=== PATIENT | female | born 1985 | race Caucasian/White ===

== ENCOUNTER → 2017-12-12 01:09 | Outpatient (CLI) | payer MEDICAID, SELFPAY ==
--- NOTE | 2017-12-12 09:34 | DI.REPORT_ITS ---
SYMPTOM/DIAGNOSIS: SURVEY Z34.82 OBSTETRICAL ULTRASOUND: Routine examination was performed. There is a single living intrauterine gestation. Estimated sonographic age is 18 weeks 4 days. No or placental abnormalities were identified. Please refer to the accompanying data sheet for complete details. IMPRESSION: Single living intrauterine gestation. Estimated sonographic age is 18 weeks 4 days. Many abnormalities cannot be diagnosed. A normal exam does not exclude a congenital anomaly. Radiology No. [id number] LMP: Exam Date: 12/12/17 [facility] wks days on EDC ([facility]) 05/15/18 Confirmed: HISTORY: SURVEY ---- PREDICTED GESTATIONAL AGE NUMBER 18 weeks with a range of 17 week to 19 weeks. 1 Determined by XX___1STUS___LMP___HISTORY Info. pertaining to fetus # PLACENTA PRESENTATION Grade 0-1 Cephalic___ Anterior___Posterior_X__ Breech__X__ Right Left Transverse(head right___ Fundal___Low-lying___Previa___ Transverse(head left___ Varying BIOMETRY AMNIOTIC FLUID BPD: 41 mm 18 +3 weeks Normal HC: 157 mm 18 +4 weeks AC: 132 mm 18 +5 weeks FL: 27 mm 18 +3 weeks AMNIOTIC FLUID INDEX >26 WK CRL: mm weeks Cisterna Magna: 2.6 mm CI: 82 RUQ: LUQ Cerebellum: 1.9 cm EFW: 246 grams 79% Percentile RLQ: LLQ Total: cms Composite AGE= 18 +4 wks EDC by US__05/11/2018 BIOPHYSICAL PROFILE ANATOMY IDENTIFIED SCORE 0/2 Heart: 4-Chamber_X__Rate:BPM___141 bpm__ LVOT:___X RVOT:_X Amniotic Fluid(>2cms)____ Stomach:___X____ Kidneys:_X Respirations (>30 secs) Bladder:____X____ Post. Fossa: X Body Flex/Extension 3 vessel cord:__X Ventricles:__X cord insertion:__X___ Lips:_X___ Extremity Flex/Extension spinal morphology:__X Nose:X Total Score= Palate:___X____ NS=not seen
== END ==
PROVIDERS: PCP Physician Assistant Medical; Visit Provider Advanced Practice Midwife
DX: Z34.82 Encounter for supervision of other normal pregnancy, second trimester (principal)
CPT/HCPCS: 76805

== ENCOUNTER 2018-02-20 10:32 | Outpatient (CLI) | payer MEDICAID, SELFPAY ==
[2018-02-20 11:04] LABS: Glucose,1 Hr (Glucola) 86 mg/dL (80-140)
[2018-02-27 01:46] LABS: Result Summary NEGATIVE; Specimen WB Whole Blood
== END 2018-02-20 10:52 ==
PROVIDERS: PCP Physician Assistant Medical; Visit Provider Advanced Practice Midwife
DX: Z13.228 Encounter for screening for other metabolic disorders (principal); Z34.92 Encounter for supervision of normal pregnancy, unspecified, second trimester
CPT/HCPCS: 36415; 82950; 81220

== ENCOUNTER 2018-02-22 18:06 | Outpatient (REF) | payer MEDICAID, SELFPAY | END 2018-02-22 18:26 | LOC: LBN 18:06 | PROVIDERS: PCP Physician Assistant Medical; Visit Provider Advanced Practice Midwife | DX: N76.0 Acute vaginitis (principal) | CPT/HCPCS: 87480; 87510; 87660 ==

== ENCOUNTER 2018-04-16 14:00 | Observation (INO) | payer MEDICAID, SELFPAY | END 2018-04-16 16:55 | disposition home or self-care (01) | PROVIDERS: Admitting Provider Nurse Practitioner; PCP Physician Assistant Medical; Visit Provider Nurse Practitioner | DX: O9A.213 Injury, poisoning and certain other consequences of external causes complicating pregnancy, third trimester (principal); Z3A.35 35 weeks gestation of pregnancy; W19.XXXA Unspecified fall, initial encounter | CPT/HCPCS: G0378 ==

== ENCOUNTER 2018-04-17 00:24 | Outpatient (CLI) | payer MEDICAID, SELFPAY ==
--- NOTE | 2018-04-17 13:34 | DI.US_ITS ---
SYMPTOMS/DIAGNOSIS: S </= D, Z33.1 OB ULTRASOUND: Comparison is made with 6Aug18. The fetus is in cephalic position. The placenta is posterior. The biometric measurements correspond to 35 weeks 1 day. The estimated weight is 2555 grams which corresponds to the 24th percentile. The amniotic fluid appears normal with an SANJIV of 17. IMPRESSION: size and weight are within the low normal range. Many abnormalities cannot be diagnosed. A normal exam does not exclude a congenital anomaly. Radiology No. [id number] LMP: Exam Date: 04/17/18 [facility] wks days on EDC ([facility]) 05/15/18 Confirmed: HISTORY: SANJIV/EFW ---- PREDICTED GESTATIONAL AGE NUMBER 36 weeks with a range of 35 weeks to 37 weeks. 1 Determined by 1STUS X LMP___HISTORY Info. pertaining to fetus # PLACENTA PRESENTATION Grade I-II Cephalic X Anterior___Posterior X Breech____ Right Left X Transverse(head right___ Fundal___Low-lying___Previa___ Transverse(head left___ Varying BIOMETRY AMNIOTIC FLUID BPD: 87 mm 35+1 weeks Normal HC: 315 mm 35+3 weeks AC: 310 mm 35 weeks FL: 67 mm 34+5 weeks AMNIOTIC FLUID INDEX >26 WK CRL: mm weeks Cisterna Magna: mm CI: 0.84 RUQ: 5.57 LUQ: 3.31 Cerebellum: cm EFW: 2555 grams Percentile 24th RLQ: 5.09 LLQ: 3.07 Total: 17 cms Composite AGE= 35+1 wks EDC by US 05/21/18 BIOPHYSICAL PROFILE ANATOMY IDENTIFIED SCORE 0/2 Heart: 4-Chamber___Rate:BP 122 BPM LVOT: RVOT: Amniotic Fluid(>2cms)____ Stomach: X Kidneys: X Respirations (>30 secs) Bladder: X Post. Fossa: Body Flex/Extension 3 vessel cord:: X Ventricles: cord insertion: Lips:____ Extremity Flex/Extension spinal morphology: Nose: Total Score= Palate: NS=not seen Limited study for SANJIV/EFW.
== END 2018-04-17 00:44 ==
PROVIDERS: PCP Physician Assistant Medical; Visit Provider Advanced Practice Midwife
DX: O26.843 Uterine size-date discrepancy, third trimester (principal); Z34.93 Encounter for supervision of normal pregnancy, unspecified, third trimester
CPT/HCPCS: 76816

== ENCOUNTER 2018-04-17 18:49 | Outpatient (REF) | payer MEDICAID, SELFPAY | END 2018-04-17 19:09 | LOC: LBN 18:49 | PROVIDERS: PCP Physician Assistant Medical; Visit Provider Advanced Practice Midwife | DX: Z34.93 Encounter for supervision of normal pregnancy, unspecified, third trimester (principal); Z36.85 Encounter for antenatal screening for Streptococcus B | CPT/HCPCS: 87081 ==

== ENCOUNTER 2018-05-03 15:56 | Outpatient (CLI) | payer MEDICAID, SELFPAY | END 2018-05-03 16:16 | PROVIDERS: PCP Physician Assistant Medical; Visit Provider Advanced Practice Midwife | DX: O76 Abnormality in fetal heart rate and rhythm complicating labor and delivery (principal); Z3A.38 38 weeks gestation of pregnancy | CPT/HCPCS: 59025 ==

== ENCOUNTER 2018-05-10 07:11 | Inpatient (IN) | payer MEDICAID, SELFPAY ==
[2018-05-10] MEDS: Normal Saline Flush 10 ML SYR IVP (08:26)
[2018-05-10 08:39] LABS: HCT 33.2 % (36.0-46.0); HGB 10.5 g/dL (12.0-15.5); Mean Corp. HGB Concentration 31.6 g/dL (32.0-36.0); Mean Corpuscular Hemoglobin 27.9 pg (27.0-33.0); Mean Corpuscular Volume 88.1 fL (80-95); Platelet Count 214 x1000/uL (130-400); RBC 3.77 m/cumm (4.00-5.20); RBC Distribution Width 13.5 % (11.7-14.6); White Blood Cell Count 6.09 k/cumm (4.4-10.8)
[2018-05-10] MEDS: Ibuprofen 600 MG TAB PO ×2 (12:03→19:03)
[2018-05-10] MEDS: Acetaminophen 325 MG TAB 650 MG PO ×3 (12:04→22:18)
[2018-05-10] MEDS: Hamamelis Leaf/Glycerin 100 EACH BOX PR (16:19)
[2018-05-11] MEDS: Acetaminophen 325 MG TAB 650 MG PO ×5 (02:48→22:09)
[2018-05-11] MEDS: Ibuprofen 600 MG TAB PO ×4 (02:48→22:10)
[2018-05-11 07:25] LABS: HCT 31.9 % (36.0-46.0); Mean Corp. HGB Concentration 31.3 g/dL (32.0-36.0); Mean Corpuscular Hemoglobin 27.7 pg (27.0-33.0); Mean Corpuscular Volume 88.4 fL (80-95); Mean Platelet Volume 9.1 fL (8.0-11.0); Platelet Count 218 x1000/uL (130-400); RBC 3.61 m/cumm (4.00-5.20); RBC Distribution Width 13.7 % (11.7-14.6); White Blood Cell Count 8.04 k/cumm (4.4-10.8)
[2018-05-12] MEDS: Acetaminophen 325 MG TAB 650 MG PO ×2 (04:01→09:32)
[2018-05-12] MEDS: Ibuprofen 600 MG TAB PO ×2 (04:01→09:32)
== END 2018-05-12 13:30 | disposition home or self-care (01) | DRG 807 ==
PROVIDERS: Admitting Provider Advanced Practice Midwife; PCP Physician Assistant Medical; Visit Provider Advanced Practice Midwife
DX: O99.824 Streptococcus B carrier state complicating childbirth (principal); Z37.0 Single live birth; Z3A.39 39 weeks gestation of pregnancy
CPT/HCPCS: 36415; 85027; 86850; 86900; 86901; J2540; J3490

== ENCOUNTER 2019-08-29 00:51 | Outpatient (CLI) | payer BC, SELFPAY ==
--- NOTE | 2019-08-29 | DI.US_ITS ---
EXAM: US PELVIS TRANSVAGINAL CLINICAL HISTORY: RLQ PAIN, R10.31. TECHNIQUE: Transabdominal and tranvaginal imaging was performed using standard protocol. COMPARISON: PELVIS TRANSVAG from 08/03/2010 FINDINGS: KIDNEYS: Kidneys are symmetric in size. No evidence of renal calculi. No evidence of hydronephrosis. No renal mass or cyst identified. UTERUS: Retroflexed and measures 9.6 by 7.6 x 4.6 cm. Endometrium: Homogeneous, 8 millimeters. Myometrium: Unremarkable. Cervix: Unremarkable. OVARIES: Normal in size. Right: Cyst or mass: None. Left: Cyst or mass: None. DOPPLER: Color: Symmetric and uniform flow to both ovaries. No hyperemia. Duplex: Normal ovarian arterial waveforms visualized. CUL-DE-SAC: Free fluid: A small amount of fluid is seen adjacent to the left ovary. IMPRESSION: 1. Normal-appearing uterus with endometrial stripe within normal limits. 2. Unremarkable bilateral ovaries. Small amount of fluid adjacent to the left ovary. DATA REPOSITORY:
== END 2019-08-29 01:11 ==
PROVIDERS: PCP Physician Assistant Medical; Visit Provider Physician Assistant Medical
DX: R10.31 Right lower quadrant pain (principal)
CPT/HCPCS: 76830; 76856

== ENCOUNTER 2021-08-14 13:29 | Outpatient (REF) | payer BC, SELFPAY ==
[2021-08-14 14:42] LABS: Calculated LDL 109 mg/dL (<100); Cholesterol 187 mg/dL (<200); Glucose 83 mg/dL (74-106); HDL Cholesterol 58 mg/dL (40-60); Triglyceride 102 mg/dL (<150)
== END 2021-08-14 13:30 | disposition home or self-care (01) ==
LOC: NCHCN 13:29
PROVIDERS: PCP Physician Assistant Medical; Visit Provider Physician Assistant Medical
DX: Z00.00 Encounter for general adult medical examination without abnormal findings (principal); Z13.1 Encounter for screening for diabetes mellitus; Z13.220 Encounter for screening for lipoid disorders
CPT/HCPCS: 80061; 82947

== ENCOUNTER 2022-02-12 16:32 | Outpatient (REF) | payer BC, SELFPAY ==
[2022-02-12 16:50] LABS: Anion Gap 5.5 mmol/L (3-11); BUN 14 mg/dL (7-18); CO2 28.5 mmol/L (21.0-32.0); CREATININE 0.9 mg/dL (0.55-1.02); Calcium 8.4 mg/dL (8.5-10.1); Chloride 105 mmol/L (98-107); Estimated GFR 84.44 (mL/min/1.73m2); Glucose 113 mg/dL (74-106); Potassium 3.8 mmol/L (3.5-5.1); Sodium 139 mmol/L (136-145)
== END 2022-02-12 16:33 | disposition home or self-care (01) ==
LOC: NCHCN 16:32
PROVIDERS: PCP Physician Assistant Medical; Visit Provider Nurse Practitioner Family
DX: U07.1 COVID-19 (principal)
CPT/HCPCS: 80048

== ENCOUNTER 2022-10-29 00:41 | Outpatient (CLI) | payer BC, SELFPAY ==
--- NOTE | 2022-10-29 11:54 | DI.RAD_ITS ---
Exam(s) XR HAND LT COMPLETE EXAM: XR HAND LT COMPLETE CLINICAL HISTORY: LT FINGER PAIN, M79.645. TECHNIQUE: 2D digital imaging was performed of the left hand. Three views were obtained. AP, later al and oblique views were obtained. COMPARISON: No exams were available for comparison FINDINGS: BONES: No acute fracture is present. No bony destructive lesion is seen. JOINTS: No dislocation present. SOFT TISSUE: Normal. IMPRESSION: Unremarkable radiographs of the left hand. DATA REPOSITORY: RADIATION DOSE DELIVERED:
== END 2022-10-29 01:01 ==
LOC: DI 00:41
PROVIDERS: PCP Physician Assistant Medical; Visit Provider Physician Assistant Medical
DX: M79.645 Pain in left finger(s) (principal)
CPT/HCPCS: 73130

== ENCOUNTER 2023-02-07 11:09 | Outpatient (REF) | payer BC, SELFPAY ==
--- NOTE | 2023-02-07 10:35 | PAPFT_PTH ---
PATIENT: Ivy Forrest LOC: [facility] U#:[id number] AGE/SX: 37/F ROOM: RE02/07/[address]: Sandra Brooks NP : 1985 BED: DIS: 02/07/2023 SPEC #: [id number] RECD: 02/07/23 11:52 STATUS: LYDIA REYue #: [id number] LAVON: 02/07/23 10:[address]: Sandra Brooks NP DEPT: [facility] Cytology RECD BY: Lissa Mariscal ENTERED: 02/07/23 11:52 SP TYPE: PAPFT OTHR DR: Lucian Vernon Tissues: 1 - CX/ENDOCX FOR PAP SMEARS Procedures: PAP THIN PREP/UVM Screening HPV DNA PROBE Comments: [id number]
== END 2023-02-07 11:10 | disposition home or self-care (01) ==
LOC: LBN 11:09
PROVIDERS: PCP Physician Assistant Medical; Visit Provider Nurse Practitioner Women's Health
DX: Z12.4 Encounter for screening for malignant neoplasm of cervix (principal); Z11.51 Encounter for screening for human papillomavirus (HPV)
CPT/HCPCS: 88142; 87624

== ENCOUNTER 2023-09-30 13:41 | Outpatient (REF) | payer BC, SELFPAY ==
[2023-09-30 15:50] LABS: Abs Immature Grans 0.02 10^3/uL (0.0-0.06); Absolute Basophil Count 0.03 10^3/uL (0.0-0.2); Absolute Eosinophil Count 0.17 10^3/uL (0.0-0.7); Absolute Lymphocyte Count 1.69 10^3/uL (1.2-3.4); Absolute Monocyte Count 0.35 10^3/uL (0.1-0.8); Basophils % 0.5 %; Eosinophils % 2.6 %; HGB 13.7 g/dL (11.2-15.7); Immature Grans % 0.3 %; Lymphocytes % 26.2 %; MCH 31.9 pg (27.0-33.0); MCHC 34.3 % (32.0-36.0); MCV 93 fL (80-95); MPV 9.9 fL (8.0-11.0); Monocytes % 5.4 %; Platelet Count 264 10^3/uL (130-400); RBC 4.29 10^6/uL (3.93-5.22); RDW 12.2 % (11.7-14.6); RDW-SD 42.2 fL; WBC 6.46 10^3/uL (4.4-10.8)
[2023-09-30 16:36] LABS: ALT 26 U/L (14-59); AST 19 U/L (15-37); Albumin 3.5 g/dL (3.4-5.0); Alkaline Phosphatase 28 U/L (46-116); Anion Gap 8.9 mmol/L (3-11); BUN 12 mg/dL (7-18); Bilirubin, Total 1.8 mg/dL (0.2-1.0); CO2 25.1 mmol/L (21.0-32.0); CREATININE 0.8 mg/dL (0.55-1.02); Calcium 8.2 mg/dL (8.5-10.1); Chloride 106 mmol/L (98-107); Estimated GFR 96.06 (mL/min/1.73m2); Glucose 72 mg/dL (74-106); Potassium 4.1 mmol/L (3.5-5.1); Sodium 140 mmol/L (136-145); TSH (W/Ref FT4) 1.51 uIU/mL (0.36-3.74)
[2023-09-30 16:43] LABS: Vitamin D 25 Total 34.3 ng/mL (30-100)
== END 2023-09-30 13:42 | disposition home or self-care (01) ==
LOC: NCHCN 13:41
PROVIDERS: PCP Physician Assistant Medical; Visit Provider Physician Assistant Medical
DX: R53.83 Other fatigue (principal)
CPT/HCPCS: 80053; 82306; 84443; 85025

== ENCOUNTER 2023-11-04 02:50 | Emergency (ER) | payer BC, SELFPAY ==
[2023-11-04 02:57] VITALS: BP 113/50; PULSE 87; RESP 22; TEMP 36.3; O2SAT 95
[2023-11-04 03:01] VITALS: BP 121/100; PULSE 84; RESP 22; TEMP 37.1
--- NOTE | 2023-11-04 03:17 | ED.GENADUL_ITS ---
Discharge Plan Disposition Patient Disposition: Critical Access Hospital Specific Critical Access Facility: [facility] Condition: Stable Discharge Details Clinical Impression: Abdominal pain Primary Care Provider: Lucian Vernon ED Provider: Janie Su Home Meds and New Rx's Prescriptions: Continued magnesium 250 mg tablet 250 mg PO DAILY ascorbic acid (vitamin C) 500 mg capsule PO ascorbic acid-elderberry fruit [Airborne (elderberry)] 100-50 mg tablet,chewable 50 tab PO ibuprofen 200 mg tablet 200 mg PO Q6H PRN norethindrone-e.estradiol-iron [Lyndsey Fe 1.5/30 (28)] 1.5 mg-30 mcg (21)/75 mg (7) tablet 1 tab PO DAILY Qty: 84 3RF acetaminophen [Tylenol] 325 MG tablet 650 mg PO Q4H PRN PRN0RF Discharge Instructions Additional Instructions: You may have appendicitis which is a serious medical condition that can be life threatening. You need a CT scan. Please go directly to [facility] : [address], [place] [address] Discharge Data Discharge Date/Time-TO BE ENTERED AT DEPARTURE: 11/04/23 05:27 HPI General Mode of arrival: ambulatory . Date/Time Provider Initiated Documentation: 11/04/23 03:07 . Limitations to Documentation: no limitations . HPI Narrative: 38yo F with hx migraines, no prior abdominal surgeries, presenting for acute abdominal pain. Symptoms started yesterday evening, initially mild but worsening. Woke her from sleep this morning. Pain is dull and crampy, non- radiating, and located in the periumbilical region. Associated nausea, vomited x 2, nonbloody nonbilious. Last BM yesterday morning, normal. No diarreha. Never had similar symptoms before. No dysuria, hematuria, or vaginal discharge. She is otherwise in her usual state of health [facility] no fevers, chills, rash, chest pain, shortness of breath, or other concerns. Related Data Home Medications Medication Instructions Recorded Confirmed acetaminophen 325 mg tablet 650 mg (2 x 325 mg) PO Q4H PRN PRN 02/29/16 11/04/23 (Tylenol) ascorbic acid (vitamin C) 500 mg mg PO 12/30/21 08/09/23 capsule ascorbic acid 100 mg-elderberry 50 tab PO 12/30/21 08/09/23 fruit 50 mg chewable tablet (Airborne (elderberry)) ibuprofen 200 mg tablet 200 mg PO Q6H PRN 02/07/23 11/04/23 norethindrone 1.5 mg-ethinyl 1 tab PO DAILY #84 tabs 02/07/23 11/04/23 estradiol 30 mcg(21)/iron 75 mg(7) tablet (Lyndsey Fe 1.5/30 (28)) magnesium 250 mg tablet 250 mg PO DAILY 08/09/23 11/04/23 Previous Rx's Medication Instructions Recorded acetaminophen 325 mg tablet 650 mg (2 x 325 mg) PO Q4H PRN PRN 02/29/16 (Tylenol) norethindrone 1.5 mg-ethinyl 1 tab PO DAILY #84 tabs 02/07/23 estradiol 30 mcg(21)/iron 75 mg(7) tablet (Lyndsey Fe 1.5/30 (28)) Allergies Allergy/AdvReac Type Severity Reaction Status Date / Time latex Allergy Unknown Family Verified 11/04/23 02:55 history. Patient asked to avoid latex terconazole Allergy unknown Verified 11/04/23 02:55 ADHESIVE TAPE Allergy Unknown RASH Uncoded 11/04/23 02:55 GUINEA PIGS Allergy Unknown RUNNY EYES Uncoded 11/04/23 02:55 AND NOSE, SNEEZING HOT PEPPERS Allergy Unknown ROOF OF Uncoded 11/04/23 02:55 MOUTH TINGLY General Stated Complaint: Abd Prob MARY: 3 Review of Systems Narrative: see HPI Exam Narrative Exam Narrative: General: Alert, well nourished Head: Normocephalic, atraumatic Neck: Trachea midline, ?Neck supple. Cardiac: ?RRR Resp: No respiratory distress. Speaking in full sentences. Abd: ?Soft, non-distended. Mildly TTP of periumbilical and RLQ. No rebound or guarding. : ?Mild suprapubic tenderness. No CVA tenderness. Extremities: ?No deformities.? No peripheral edema. Neurologic: GCS 15. ? Moves all extremities freely against gravity Course Vital Signs Vital signs: Vital Signs Temperature 36.3 C L 11/04/23 02:57 Pulse 87 11/04/23 02:57 Respiratory Rate 22 11/04/23 02:57 Blood Pressure 113/50 L 11/04/23 02:57 Pulse Oximetry 95 06/28/24 02:57 Temperature 37.1 C 11/04/23 03:01 Temperature Source Temporal Artery Scan 11/04/23 03:01 Pulse 84 11/04/23 03:01 Respiratory Rate 22 11/04/23 03:01 Respiratory Effort Normal 11/04/23 03:01 Blood Pressure 121/100 H 11/04/23 03:01 Blood Pressure Position Supine 11/04/23 02:57 Pulse Oximetry 95 11/04/23 02:57 Oxygen Delivery Method Room Air 11/04/23 02:57 Oxygen Flow Rate 0 11/04/23 02:57 Pain Level 7 11/04/23 03:01 Comment Most pain around navel into back, 11/04/23 02:57 Medical Decision Making 38yo F with hx migraines, no prior abdominal surgeries, presenting for acute abdominal pain. Onset yesterday evening, constant, worsening, woke her from sleep. Associated N/V. Vital signs reassuring on arrival, on exam she is TTP of periumbilcal region as well as RLQ with no peritoneal signs. Will give tylenol and toradol for pain, zofran for N/V, and 1L IVFB. May be gastroenteritis however acute/surgical abd pathology also possible including appendicitis, obstruction, etc. Less likely ovarian/pelvic pathology; would not transfer for US at this time. Labs reviewed as below, CBC with leukocytosis to 15 and left shift, CMP with slightly elevated bilirubin at 1.3 (pt reports hx of this prior and currently being worked up by her PCP), lactate normal, lipase normal (not pancreatitis), negative, UA not infected. -Unexpected CT scanner down. Robertson Score 6, certainly warrants CT. looking into transfer availability locally Accepted to [facility] ED to ED under Dr. Van. Going by private vehicle. Lab Data Lab results reviewed: Yes I reviewed the patient's lab results. Labs: Laboratory Tests Range/Units 11/04/23 11/04/23 03:00 03:59 WBC (4.4-10.8) 10^3/uL 15.38 H RBC (3.93-5.22) 10^6/uL 4.35 Hgb (11.2-15.7) g/dL 13.9 Hct (36.0-46.0) % 40.5 MCV (80-95) fL 93 MCH (27.0-33.0) pg 32.0 MCHC (32.0-36.0) % 34.3 RDW (11.7-14.6) % 12.0 Plt Count (130-400) 10^3/uL 329 MPV (8.0-11.0) fL 9.0 Immature Gran % % 0.4 Neutrophils % % 79.6 Lymphocytes % % 12.9 Monocytes % % 5.3 Eosinophils % % 1.6 Basophils % % 0.2 Nucleated RBC % (0.0-0.3) % 0.0 Absolute Neutrophils (1.2-6.7) 10^3/uL 12.24 H Absolute Lymphocytes (1.2-3.4) 10^3/uL 1.98 Absolute Monocytes (0.1-0.8) 10^3/uL 0.82 H Absolute Eosinophils (0.0-0.7) 10^3/uL 0.25 Absolute Basophils (0.0-0.2) 10^3/uL 0.03 VBG Lactate (0.6-1.4) mmol/L 1.0 Sodium (136-145) mmol/L 140 Potassium (3.5-5.1) mmol/L 3.5 Chloride (98-107) mmol/L 105 Carbon Dioxide (21.0-32.0) mmol/L 25.2 Anion Gap (3-11) mmol/L 9.8 BUN (7-18) mg/dL 14 Creatinine (0.55-1.02) mg/dL 0.8 Est GFR (CKD-EPI 2020) (mL/min/1.73m2) 96.06 Glucose (74-106) mg/dL 110 H Calcium (8.5-10.1) mg/dL 8.0 L Magnesium (1.8-2.4) mg/dL 1.6 L Total Bilirubin (0.2-1.0) mg/dL 1.32 H AST (15-37) U/L 14 L ALT (14-59) U/L 25 Alkaline Phosphatase (46-116) U/L 32 L Total Protein (6.4-8.2) g/dL 7.0 Albumin (3.4-5.0) g/dL 3.4 Lipase (16-77) U/L 34 Beta HCG, Quant (1-3) mIU/mL < 1 L Urine Color (Yellow) Yellow Urine Clarity (Clear) Clear Urine pH (5-8) 8.5 H Ur Specific [place] (1.005-1.025) 1.025 Urine Protein (Neg-Trace) mg/dL Negative Urine Ketones (Negative) mg/dL Negative Urine Blood (Negative) Trace-intact H Urine Nitrite (Negative) Negative Urine Bilirubin (Negative) Negative Urine Urobilinogen (Up to 0.2) mg/dL 0.2 Ur Leukocyte Esterase (Negative) Negative Urine RBC (0-2) HPF 5-10 H Urine WBC (0-5) HPF Negative Ur Epithelial Cells (Negative) HPF Rare Urine Crystals (Negative) HPF Negative Urine Bacteria (Negative) HPF Rare Urine Casts (Negative) LPF Negative Urine Mucus (Negative) Negative Ur Culture Indicated? No Urine Glucose (Negative) mg/dL Negative Quality:SDOH Health Related Social Needs: No Data to Display PFSH All Active Problems Abdominal pain (Acute) Uses oral contraceptives (Acute) Medical History Kyphosis of thoracic region RLQ abdominal pain History of COVID-19 Facial skin lesion Sinus congestion Finger pain, left Food allergies red peppers Surgical History Dilation and curettage 0ral surgery Family History Mother Essential hypertension Father Heart disease [place] Myocardial infarction Sister Asthma Brother Asthma Brother Asthma Other Alcohol abuse Social History Smoking/Tobacco Use Status: Never Smoking risk assessment performed?: Yes Alcohol Intake: never Drug use: Never Substance use type: does not use Adopted: No Foster care: No Household members: spouse and children Number of Children: 5 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 Pets and animals: Yes (cat) Pets and animals: cat(s) Sexually active: Yes Do you think of yourself as: straight/heterosexual Current gender identity: female What type of physical activity do you participate in: regular exercise Frequency: 3-4 times per week Seatbelt use: always Helmet use: Yes 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 Date GA/Weeks # Preg Succ Route Wgt Sex Labor Lgth Anesth esia Location Prov Compl 05/10/18 39 No vaginal 3430.[address], [facility] 05/15/18 39 No vaginal 3430.292 g Male None topi jenna cream local regional Delivery Date: 05/10/18 Last Updated by: Jackie Palumbo Right Occipital Anterior presentation, Anterior lip reduced, shortly after srom w/lg amt clear fluid
[2023-11-04 03:25] LABS: Abs Immature Grans 0.06 10^3/uL (0.0-0.06); Absolute Basophil Count 0.03 10^3/uL (0.0-0.2); Absolute Eosinophil Count 0.25 10^3/uL (0.0-0.7); Absolute Lymphocyte Count 1.98 10^3/uL (1.2-3.4); Absolute Monocyte Count 0.82 10^3/uL (0.1-0.8); Absolute Neutrophil Count 12.24 10^3/uL (1.2-6.7); Basophils % 0.2 %; Eosinophils % 1.6 %; HCT 40.5 % (36.0-46.0); HGB 13.9 g/dL (11.2-15.7); Immature Grans % 0.4 %; Lymphocytes % 12.9 %; MCHC 34.3 % (32.0-36.0); MCV 93 fL (80-95); Monocytes % 5.3 %; Neutrophils % 79.6 %; Platelet Count 329 10^3/uL (130-400); RBC 4.35 10^6/uL (3.93-5.22); RDW-SD 41.8 fL; WBC 15.38 10^3/uL (4.4-10.8)
[2023-11-04] MEDS: ACETAMINOPHEN 1,000 MG/100 ML BTL 400 MG IVPB (03:26)
[2023-11-04] MEDS: Ondansetron 4 MG/2 ML VIAL IVP (03:26)
[2023-11-04] MEDS: Ketorolac 15 MG/ML VIAL IVP (03:26)
[2023-11-04] MEDS: Normal Saline 1,000 ML 1000 ML IV (03:26)
[2023-11-04 03:41] LABS: ALT 25 U/L (14-59); AST 14 U/L (15-37); Albumin 3.4 g/dL (3.4-5.0); Alkaline Phosphatase 32 U/L (46-116); Anion Gap 9.8 mmol/L (3-11); BUN 14 mg/dL (7-18); Bilirubin, Total 1.32 mg/dL (0.2-1.0); CO2 25.2 mmol/L (21.0-32.0); CREATININE 0.8 mg/dL (0.55-1.02); Chloride 105 mmol/L (98-107); Estimated GFR 96.06 (mL/min/1.73m2); Glucose 110 mg/dL (74-106); Lipase 34 U/L (16-77); Magnesium 1.6 mg/dL (1.8-2.4); Potassium 3.5 mmol/L (3.5-5.1); Sodium 140 mmol/L (136-145)
[2023-11-04 04:03] LABS: Bilirubin Negative (Negative); Blood Trace-intact (Negative); Clarity Clear (Clear); Glucose Negative (Negative); Ketones Negative (Negative); Leukocyte Esterase Negative (Negative); Nitrite Negative (Negative); Specific Gravity 1.025 (1.005-1.025); Urobilinogen 0.2 mg/dL (Up to 0.2); pH 8.5 (5-8)
[2023-11-04 04:06] LABS: Bacteria Rare HPF (Negative); C & S Indicated? No; Casts Negative LPF (Negative); Crystals Negative HPF (Negative); Epithelial Cells Rare HPF (Negative); Mucus Negative (Negative); WBC Negative HPF (0-5)
[2023-11-04] MEDS: Calcium Carbonate 1.5 GM TAB PO (04:08)
[2023-11-04] MEDS: Magnesium Gluconate 500 MG TAB PO (04:08)
[2023-11-04 04:17] LABS: HCG Quant, Pregnancy < 1 mIU/mL (1-3)
[2023-11-04 05:26] VITALS: PULSE 88; RESP 14; O2SAT 98
--- NOTE | 2023-11-04 05:43 | NUR.NOTE ---
Nurse to faisal report has been done by Herman Mcdonald to nurse Francisca at [facility] ED
== END 2023-11-04 05:27 | disposition critical access hospital (66) ==
PROVIDERS: Emergency Provider Student in an Organized Health Care Education/Training Program; PCP Physician Assistant Medical
DX: R11.2 Nausea with vomiting, unspecified (principal); R10.33 Periumbilical pain; R10.31 Right lower quadrant pain
CPT/HCPCS: 80053; 83690; 96361; 96365; 96375; 99285; 81003; 81015; 83605; 83735; 84702; 85025; 99284; J0131; J1885; J2405; J3490

== ENCOUNTER 2023-11-28 15:15 | Outpatient (CLI) | payer BC, SELFPAY ==
[2023-11-28 22:53] LABS: Parathyroid Hormone,Intact 42 pg/mL (19-88)
[2023-12-01 10:42] LABS: Unconjugated(Indirect) Bili 1.4 mg/dL (<=1.1)
== END 2023-11-28 15:16 | disposition home or self-care (01) ==
PROVIDERS: PCP Physician Assistant Medical; Visit Provider Physician Assistant Medical
DX: R89.9 Unspecified abnormal finding in specimens from other organs, systems and tissues (principal); E83.51 Hypocalcemia
CPT/HCPCS: 36415; 82248; 83970

== ENCOUNTER 2024-04-16 03:00 | Outpatient (CLI) | payer BC, SELFPAY ==
[2024-04-16] MEDS: Albuterol HFA 18 GM 200 PUFF INH IH (12:07)
[2024-04-16] MEDS: Methacholine 100 MG VIAL IH (12:07)
[2024-04-16] MEDS: Inhaler, Assist Device 1 EACH MC (12:07)
--- NOTE | 2024-04-21 12:05 | W.PFT ---
Date of service: 04/16/24 Time of Service: 10:08 Pulmonary Function Test Result Indications: Dyspnea Interpretation Spirometry: There ia a 22% decrease in FEV1 with administration of 2mg/mL methacholine. Impression Positive methacholine challenge Clinical Correlation therefore is recommended.
== END 2024-04-16 03:01 | disposition home or self-care (01) ==
LOC: RT 03:01
PROVIDERS: PCP Physician Assistant Medical; Visit Provider Student in an Organized Health Care Education/Training Program
DX: R06.00 Dyspnea, unspecified (principal)
CPT/HCPCS: 94060; 94070; J7674

== ENCOUNTER 2024-05-16 13:22 | Outpatient (CLI) | payer BC, SELFPAY ==
--- NOTE | 2024-05-16 | DI.RAD_ITS ---
Exam(s) XR CHEST 2V PA LATERAL EXAM: XR CHEST 2V PA LATERAL CLINICAL HISTORY: S20.213A Contusion of bilateral front wall of thorax, initial encounter TECHNIQUE: 2D digital imaging was performed of the chest. Two images were obtained. PA and lateral views were obtained. COMPARISON: No exams were available for comparison FINDINGS: MEDIASTINUM: Normal. HEART: Normal. PULMONARY VASCULATURE: Normal. LUNGS: Clear. PLEURAL SPACE: No pleural effusion or pneumothorax. BONE:Within normal limits for the patient's age. OTHER FINDINGS:Normal. IMPRESSION: No acute pulmonary findings. DATA REPOSITORY: RADIATION DOSE DELIVERED:
== END 2024-05-16 13:42 ==
PROVIDERS: PCP Physician Assistant Medical; Visit Provider Physician Assistant Medical
DX: S20.213A Contusion of bilateral front wall of thorax, initial encounter (principal); X58.XXXA Exposure to other specified factors, initial encounter
CPT/HCPCS: 71046

== ENCOUNTER 2024-10-03 13:27 | Outpatient (REF) | payer BC, SELFPAY ==
[2024-10-03 15:22] LABS: Hemoglobin A1C 4.8 % (<5.7)
[2024-10-03 15:37] LABS: Calculated LDL 103 mg/dL (<100); Cholesterol 174 mg/dL (<200); HDL Cholesterol 56 mg/dL (>or=50); Triglyceride 76 mg/dL (<150)
== END 2024-10-03 13:28 | disposition home or self-care (01) ==
LOC: NCHCN 13:27
PROVIDERS: PCP Physician Assistant Medical; Visit Provider Physician Assistant Medical
DX: Z13.1 Encounter for screening for diabetes mellitus (principal); Z13.220 Encounter for screening for lipoid disorders
CPT/HCPCS: 80061; 83036

== ENCOUNTER 2025-03-18 11:12 | Outpatient (REF) | payer BC, SELFPAY | END 2025-03-18 11:13 | disposition home or self-care (01) | LOC: LBN 11:12 | PROVIDERS: PCP Physician Assistant Medical; Visit Provider Nurse Practitioner Women's Health | DX: N76.0 Acute vaginitis (principal) | CPT/HCPCS: 87480; 87510; 87660 ==

== ENCOUNTER → 2025-03-21 02:22 | Outpatient (CLI) | payer BC, SELFPAY ==
--- NOTE | 2025-03-21 13:02 | DI.MAMMO_ITS ---
Exam(s) MAMMO SCREENING EXAM: MAMMO SCREENING CLINICAL HISTORY: SCREENING MAMMO Z12.31. TECHNIQUE: Bilateral full field digital CC and MLO mammographic images were obtained with 3D tomosynthesis and utilizing computer aided detection (CAD). COMPARISON: None. This is a baseline mammogram on this 39-year-old. FINDINGS: The fibroglandular tissue pattern is heterogeneously dense. There are no CAD designations There are no spiculated masses nor malignant-appearing microcalcification groups. There is no significant architectural distortion nor skin thickening-retraction. IMPRESSION: No radiographic evidence of malignancy. BI-RADS Category 1 - Negative Breast Density - Category C - The breast are heterogeneously dense, which may obscure small masses. Breast density Category C or D implies that the patient has dense breast tissue. Dense breast tissue can make it harder to find cancer on a mammogram. Dense breast tissue is also associated with an increased risk of breast cancer. This information about the result of the mammogram report was provided to the patient to raise their awareness. Use this report when you speak with the patient about their risks for breast cancer, which includes their family history. At that time, you may recommend additional screening tests (Ultrasound or MRI) as these tests may add significant information. A negative radiographic report should not delay biopsy if a dominant or clinically suspicious mass is present. Up to ten percent of cancers are not identified on mammography. A negative report may reinforce clinical impression. Adenosis and dense breasts may obscure an underlying neoplasm. False positive reports average 6 to 10%. Patient will receive a letter notifying them of these results.
== END ==
LOC: DI 02:22
PROVIDERS: PCP Physician Assistant Medical; Visit Provider Physician Assistant Medical
DX: Z12.31 Encounter for screening mammogram for malignant neoplasm of breast (principal); R92.333 Mammographic heterogeneous density, bilateral breasts
CPT/HCPCS: 77063; 77067